=== PATIENT | male | born 1965 | race Caucasian/White ===

== ENCOUNTER 2023-08-10 09:14 | Outpatient (CLI) | payer MEDICARE, SELFPAY ==
--- NOTE | ~2023-08-10 | MR_ITS ---
MRI of the right shoulder Technique: Axial proton-density fat-sat images, coronal proton density fat-sat and T2 fat-sat images, and sagittal T1-weighted and T2 fat-sat images were acquired. Clinical History: Rotator cuff tear Findings: There is severe AC joint degenerative change, markedly productive change at the distal clav icle. There is reactive marrow edema in the distal clavicle. Coracoclavicular ligaments are intact. C oracoacromial and coracohumeral ligaments are poorly delineated. There is complete, full-thickness tear involving the entire supraspinatus tendon, which is retracted to the superior margin of the humeral head. Fluid-filled gap measures approximately 3.1 x 2.8 cm in e xtent. Infraspinatus tendon is intact, with moderate to severe distal tendinosis. Subscapularis tendo n is intact, with moderate tendinosis. Tendon of long head of the biceps is intact, with severe tendi nosis of the intra-articular portion of the superior margin of the bicipital groove. No definite labral tear identified. Inferior glenohumeral ligament is intact. There is moderate glenohumeral joint effusion, with fluid p assing through the rotator cuff defect into the subacromial/subdeltoid bursa. There is also associate d fluid distention of the proximal biceps tendon sheath. There is mild chondromalacia of the glenohum eral joint. No muscle atrophy or edema identified. Impression: Complete, full-thickness tear of the supraspinatus tendon, as detailed above. Extensive tendinosis of the infraspinatus, subscapularis, and biceps tendons. Severe AC joint degenerative change, as above. Moderate glenohumeral joint effusion with prominent fluid in the subacromial/subdeltoid bursa and bic eps tendon sheath. Correlate for superimposed bursitis/tenosynovitis. Reviewed, dictated and finalized at location M. Impression: Complete, full-thickness tear of the supraspinatus tendon, as detailed above. Extensive tendinosis of the infraspinatus, subscapularis, and biceps tendons. Severe AC joint degenerative change, as above. Moderate glenohumeral joint effusion with prominent fluid in the subacromial/amato bdeltoid bursa and biceps tendon sheath. Correlate for superimposed bursitis/te nosynovitis.
== END 2023-08-10 09:15 | disposition home or self-care (01) ==
PROVIDERS: PCP Physician Assistant; Visit Provider Physician Assistant
DX: M75.121 Complete rotator cuff tear or rupture of right shoulder, not specified as traumatic (principal); S46.811A Strain of other muscles, fascia and tendons at shoulder and upper arm level, right arm, initial encounter; M75.21 Bicipital tendinitis, right shoulder; M25.411 Effusion, right shoulder
CPT/HCPCS: 73221